=== PATIENT | male | born 1990 ===

== ENCOUNTER 2023-02-26 21:02 | Outpatient (CLI) | payer SELFPAY | END 2023-02-26 21:03 | disposition EMS.NT | LOC: EMS 21:02 | DX: R07.89 Other chest pain (principal); M25.512 Pain in left shoulder ==

== ENCOUNTER 2023-12-22 21:15 | Outpatient (CLI) | payer SELFPAY | END 2023-12-22 23:59 | disposition EMS.NT | LOC: EMS 21:15 | DX: R07.89 Other chest pain (principal) ==